=== PATIENT | female | born 2000 | race American Indian/Alaskan Native ===

== ENCOUNTER 2023-11-16 13:44 | Outpatient (CLI) | payer MEDICAID | END 2023-11-16 22:12 | disposition critical access hospital (66) | LOC: EMS 13:44 | DX: R11.2 Nausea with vomiting, unspecified (principal); R00.0 Tachycardia, unspecified; T43.592A Poisoning by other antipsychotics and neuroleptics, intentional self-harm, initial encounter | CPT/HCPCS: A0425; A0427 ==

== ENCOUNTER 2023-11-24 12:47 | Outpatient (CLI) | payer MEDICAID | END 2023-11-24 12:48 | disposition home or self-care (01) | LOC: LAB 12:47 | PROVIDERS: ATTEND Obstetrics & Gynecology | DX: Z34.91 Encounter for supervision of normal pregnancy, unspecified, first trimester (principal) | CPT/HCPCS: 36415; 84702; 86900; 86901 ==